=== PATIENT | female | born 1950 | race Caucasian/White ===

== ENCOUNTER → 2018-08-09 | Outpatient (CLI) | payer MEDICARE | LOC: ZCOL.LAB 17:28 | DX: I83.003 Varicose veins of unspecified lower extremity with ulcer of ankle (principal) ==

== ENCOUNTER → 2018-09-18 | Outpatient (CLI) | payer MEDICARE | LOC: ZCOL.LAB 12:25 | DX: I83.009 Varicose veins of unspecified lower extremity with ulcer of unspecified site (principal) ==

== ENCOUNTER → 2018-11-15 | Outpatient (CLI) | payer MEDICARE | LOC: ZCOL.LAB 21:27 | DX: I83.019 Varicose veins of right lower extremity with ulcer of unspecified site (principal) ==

== ENCOUNTER → 2019-04-08 | Outpatient (CLI) | payer MEDICARE | LOC: ZCOL.LAB 10:41 | DX: I83.009 Varicose veins of unspecified lower extremity with ulcer of unspecified site (principal) ==

== ENCOUNTER → 2019-05-02 | Outpatient (CLI) | payer MEDICARE | LOC: ZCOL.LAB 15:53 | DX: I83.009 Varicose veins of unspecified lower extremity with ulcer of unspecified site (principal) ==

== ENCOUNTER → 2019-06-03 | Outpatient (CLI) | payer MEDICARE | LOC: ZCOL.LAB 14:54 | DX: I83.009 Varicose veins of unspecified lower extremity with ulcer of unspecified site (principal) ==

== ENCOUNTER → 2019-12-12 | Outpatient (CLI) | payer MEDICARE | LOC: ZCOL.LAB 10:09 | DX: I83.009 Varicose veins of unspecified lower extremity with ulcer of unspecified site (principal); T14.8XXA Other injury of unspecified body region, initial encounter ==

== ENCOUNTER → 2020-05-28 | Outpatient (CLI) | payer MEDICARE | LOC: ZCOL.LAB 20:11 | DX: I83.009 Varicose veins of unspecified lower extremity with ulcer of unspecified site (principal) ==

== ENCOUNTER → 2020-11-26 | Outpatient (CLI) | payer MEDICARE | LOC: ZCOL.LAB 15:33 | DX: L03.039 Cellulitis of unspecified toe (principal) ==

== ENCOUNTER 2024-01-02 09:23 | Emergency (ER) | payer MEDICARE ==
[~2024-01-02] VITALS: Wt 133.2 kg
[2024-01-02 09:35] VITALS: TEMP 97.6
[2024-01-02 12:10] LABS: BASO % 0.3 % (0.0-2.0); EOS # 0.1 K/mm3 (0.0-0.7); EOS % 0.7 % (0.0-4.0); GRAN % 84.3 % (42.2-75.2); HEMOGLOBIN 17.4 g/dl (12.5-16.0); LYMPH # 0.8 K/mm3 (1.2-3.4); LYMPH % 7.7 % (20.0-51.0); MEAN CELL VOLUME 91 fl (80.0-100.0); MEAN CORPUSCULAR HEMOGLOBIN 29 pg (27-31); MEAN CORPUSCULAR HGB CONC 32 g/dl (33.0-37.0); MEAN PLATELET VOLUME 9.4 fl (7.4-10.4); MONO # 0.7 K/mm3 (0.1-0.6); MONO % 6.5 % (1.7-9.3); PLATELET COUNT 172 K/mm3 (130-400); RED BLOOD COUNT 5.94 M/mm3 (4.10-5.30); REDCELL DISTRIBUTION WIDTH-CV 13.9 % (11.5-14.5)
[2024-01-02 12:12] LABS: HEMATOCRIT 54.3 % (37.0-47.0)
[2024-01-02 12:16] LABS: PH 8.5 (5.0-8.5); URINE APPEARANCE TURBID (CLEAR/HAZY); URINE BLOOD 1+ (NEGATIVE); URINE GLUCOSE NEGATIVE (NEGATIVE); URINE KETONE TRACE (NEGATIVE); URINE NITRATE POSITIVE (NEGATIVE); URINE PROTEIN(semi-quant) 3+ (NEGATIVE); URINE UROBILINOGEN 0.2 E.U/dL (0.2-1.0)
[2024-01-02 12:32] LABS: COLLECTION METHOD CATHETER
[2024-01-02 12:33] LABS: ALBUMIN 3.9 g/dL (3.4-4.8); BILIRUBIN,TOTAL 1.4 mg/dL (0.2-1.2); CREATININE, serum 0.99 mg/dL (0.57-1.11); POTASSIUM 4.4 mEq/L (3.5-4.5); TOTAL PROTEIN 8.1 g/dl (6.2-8.1)
[2024-01-02 12:35] LABS: URINE COLOR DARK YELLOW (YELLOW)
[2024-01-02 13:41] LABS: URINE BACTERIA MANY /hpf (NONE SEEN); URINE RBC 20-50 /hpf (0-2)
[2024-01-02] MEDS ORDERED: CEFTIN500 MG PO (13:43)
[2024-01-02] MEDS ORDERED: Cefuroxime 250 MG TAB PO ONE (13:45)
[2024-01-02 14:15] VITALS: BP 135/77; PULSE 74
[2024-01-05] MEDS ORDERED: BACTRIM DS 8001 TAB PO (14:14)
== END 2024-01-02 14:15 | disposition home or self-care (01) ==
LOC: COL.ER 09:23
PROVIDERS: Nurse Practitioner
DX: N39.0 Urinary tract infection, site not specified (principal)